=== PATIENT | male | born 1990 | race American Indian/Alaskan Native ===

== ENCOUNTER 2019-05-29 14:42 | Emergency (ER) | payer SELFPAY ==
--- NOTE | 2019-05-29 16:22 | Emergency Department Report ---
Blank Doc - Documentation Documentation: 28-year-old male that presents with a SZ like activity. Denies any LOC. Stated has some hand shaking and aura. Denies any active SZ. This initial assessment/diagnostic orders/clinical plan/treatment(s) is/are subject to change based on patient's health status, clinical progression and re- assessment by fellow clinical providers in the ED. Further treatment and workup at subsequent clinical providers discretion. Patient/guardians urged not to elope from the ED as their condition may be serious if not clinically assessed and managed. Initial orders include: 1- Patient sent to [facility] for further evaluation and treatment 2- labs 3- UA
[2019-05-29 16:56] LABS: Basophils % (Auto) 0.5 % (0.0-1.8); Eosinophils # (Auto) 0.1 K/mm3 (0.0-0.4); Hematocrit 43.1 % (35.5-45.6); Hemoglobin 14.3 gm/dl (11.8-15.2); Lymphocytes # (Auto) 2.5 K/mm3 (1.2-5.4); Mean Corpuscular HGB Conc 33 % (32-34); Mean Corpuscular Volume 89 fl (84-94); Monocytes # (Auto) 0.7 K/mm3 (0.0-0.8); Monocytes % (Auto) 8.6 % (0.0-7.3); Platelet Count 219 K/mm3 (140-440); Red Blood Count 4.84 M/mm3 (3.65-5.03); Red Cell Distribution Width 14.7 % (13.2-15.2)
[2019-05-29 17:14] LABS: Alanine Aminotransferase 21 units/L (7-56); Albumin 4.3 g/dL (3.9-5); BUN/Creatinine Ratio 13; Blood Urea Nitrogen 16 mg/dL (9-20); Calcium 9.6 mg/dL (8.4-10.2); Hemolysis Index 6
--- NOTE | 2019-05-29 17:45 | Cat Scan Report ---
CT HEAD WITHOUT CONTRAST INDICATION / CLINICAL INFORMATION: Seizure. TECHNIQUE: All CT scans at this location are performed using CT dose reduction for ALARA by means of automated e xposure control. COMPARISON: Head CT 07/03/2009 FINDINGS: HEMORRHAGE: No evidence of intracranial hemorrhage or extra-axial fluid collection. EXTRA-AXIAL SPACES: Cortical sulci, sylvian fissures and basilar cisterns have an unremarkable appear ance. Incidental note is made of enlargement of the cisterna of the vellum interpositum where a small arachnoid cyst (18 x 13 x 15 mm) is suspected. This is a stable finding compared to baseline study . VENTRICULAR SYSTEM: The ventricular system is of normal size and configuration. CEREBRAL PARENCHYMA: No areas of abnormal brain parenchymal attenuation are identified. There is no i ndication of recent infarction. MIDLINE SHIFT OR HERNIATION: There is no mass effect. CEREBELLUM / BRAINSTEM: Brainstem and cerebellum have an unremarkable appearance. INTRACRANIAL VESSELS:No abnormalities are identified on this noncontrast head CT. ORBITS: visualized portions of the orbits have an unremarkable appearance. SOFT TISSUES of HEAD: No significant abnormality. CALVARIUM: Evaluation of bone windows reveals no abnormalities. PARANASAL SINUSES / MASTOID AIR CELLS: Inflammatory mucosal disease is present within multiple ethmoi d air cells bilaterally. Mucosal thickening is present in the visualized portions of the right maxill dayana sinus. Mild mucosal thickening is seen in the anterior aspect of both sphenoid sinuses. Frontal s inuses appear clear. ADDITIONAL FINDINGS: None. IMPRESSION: 1. Suspect small arachnoid cyst in the cisterna of the vellum interpositum. This is unchanged since p rior study dated 07/03/2009. 2. Inflammatory changes are present in the paranasal sinuses as noted above. 3. Otherwise normal head CT without contrast. Signer Name: North Barrera MD Signed: 05/29/2019 5:41 PM Workstation Name: [id number]
--- NOTE | 2019-05-29 20:17 | Emergency Department Report ---
ED Seizure HPI - General Chief Complaint: Seizure Stated Complaint: AURA OF SEIZURE Time Seen by Provider: 05/29/19 16:21 Source: patient, EMS Mode of arrival: Ambulatory Limitations: No Limitations - History of Present Illness Initial Comments: Mr. Aguiar is a 28-year-old male with history of schizophrenia and seizure who presents with need to take his medication. He takes Depakote 1000 mg at night. He takes Keppra 500 mg twice a day. He pays rent at the home of his brother. He was recently was kicked out. He states that he does not have anywhere to go at this time. He denies any suicidal ideation. He denies homicidal ideation. Denies hallucinations. He Just does not have anywhere to go. He did not have a seizure. He has his medication Keppra and Depakote in his hand. MD Complaint: feel seizure coming on -: Gradual Trauma: No Seizure History: known seizure disorder Possible Precipitating Event: none Associated Symptoms: denies other symptoms Treatments Prior to Arrival: none - Related Data Allergies Allergy/AdvReac Type Severity Reaction Status Date / Time No Known Allergies Allergy Verified 05/29/19 16:21 ED Review of Systems ROS: Stated complaint: AURA OF SEIZURE Other details as noted in HPI Comment: All other systems reviewed and negative Constitutional: denies: fever, malaise Respiratory: denies: cough Cardiovascular: denies: chest pain Gastrointestinal: denies: abdominal pain, nausea, vomiting Psychiatric: denies: anxiety, depression, auditory hallucinations, visual hallucinations, homicidal thoughts, suicidal thoughts ED Past Medical Hx - Past Medical History Previous Medical History?: Yes Hx Seizures: Yes Hx Psychiatric Treatment: Yes (schgabrielaophernia) - Surgical History Past Surgical History?: Yes Additional Surgical History: eye surgery - Social History Smoking Status: Current Every Day Smoker Substance Use Type: Marijuana ED Physical Exam - General Limitations: No Limitations General appearance: alert, in no apparent distress - Head Head exam: Present: atraumatic, normocephalic - Eye Eye exam: Present: normal appearance - ENT ENT exam: Present: mucous membranes moist - Neck Neck exam: Present: normal inspection, full ROM. Absent: tenderness, meningismus - Respiratory Respiratory exam: Present: normal lung sounds bilaterally. Absent: respiratory distress, wheezes, rales, rhonchi - Cardiovascular Cardiovascular Exam: Present: regular rate, normal rhythm, normal heart sounds. Absent: systolic murmur, diastolic murmur, rubs, gallop - GI/Abdominal GI/Abdominal exam: Present: soft, normal bowel sounds. Absent: distended, tenderness, guarding, rebound - Rectal Rectal exam: Present: deferred - Extremities Exam Extremities exam: Present: normal inspection - Back Exam Back exam: Present: normal inspection - Neurological Exam Neurological exam: Present: alert, oriented X3 - Psychiatric Psychiatric exam: Present: normal affect, normal mood, other (insightful art iculate ) - Skin Skin exam: Present: warm, dry, intact, normal color. Absent: rash ED Course Vital Signs 05/29/19 15:05 Temperature 97.8 F Pulse Rate 99 H Respiratory 16 Rate Blood Pressure 118/81 O2 Sat by Pulse 99 Oximetry ED Medical Decision Making - Lab Data Result diagrams: 05/29/19 16:32 05/29/19 16:32 Laboratory Results - last 24 hr 05/29/19 05/29/19 05/29/19 16:32 16:32 16:32 WBC 8.7 RBC 4.84 Hgb 14.3 Hct 43.1 MCV 89 MCH 30 MCHC 33 RDW 14.7 Plt Count 219 Lymph % (Auto) 29.0 Bonner % (Auto) 8.6 H Eos % (Auto) 1.0 Baso % (Auto) 0.5 Lymph # 2.5 Bonner # 0.7 Eos # 0.1 Baso # 0.0 Seg Neutrophils % 60.9 Seg Neutrophils # 5.3 Sodium 138 Potassium 4.2 Chloride 100.7 Carbon Dioxide 25 Anion Gap 17 BUN 16 Creatinine 1.2 Estimated GFR > 60 BUN/Creatinine Ratio 13 Glucose 85 Calcium 9.6 Total Bilirubin 0.40 AST 35 ALT 21 Alkaline Phosphatase 82 Total Creatine Kinase Total Protein 8.0 Albumin 4.3 Albumin/Globulin Ratio 1.2 Salicylates < 0.3 L Acetaminophen Plasma/Serum Alcohol 05/29/19 05/29/19 05/29/19 16:32 16:32 Unknown WBC RBC Hgb Hct MCV MCH MCHC RDW Plt Count Lymph % (Auto) Bonner % (Auto) Eos % (Auto) Baso % (Auto) Lymph # Bonner # Eos # Baso # Seg Neutrophils % Seg Neutrophils # Sodium Potassium Chloride Carbon Dioxide Anion Gap BUN Creatinine Estimated GFR BUN/Creatinine Ratio Glucose Calcium Total Bilirubin AST ALT Alkaline Phosphatase Total Creatine Kinase 1230 H Total Protein Albumin Albumin/Globulin Ratio Salicylates Acetaminophen < 5.0 L Plasma/Serum Alcohol < 0.01 - Medical Decision Making Mr. Aguiar has history of seizure disorder. He stated that he needed to take his medication. Unfortunately appears that he is currently homeless since he pays rent in his brother's home. He does not have a plan to harm himself or others. No indication of acute psychosis. He is discharged to self care. Critical care attestation.: If time is entered above; I have spent that time in minutes in the direct care of this critically ill patient, excluding procedure time. ED Disposition Clinical Impression: Seizure disorder, Schizophrenia Disposition: DC-01 TO HOME OR SELFCARE Is pt being admited?: No Does the pt Need Aspirin: No Condition: Stable Instructions: Epilepsy (ED) Referrals: SERGO WYNN MD [Primary Care Provider] - 3-5 Days
[2019-05-29 20:53] VITALS: BP 131/74
== END 2019-05-29 20:40 | disposition home or self-care (01) ==
LOC: ED 14:42
DX: G40.909 Epilepsy, unspecified, not intractable, without status epilepticus (principal); F20.9 Schizophrenia, unspecified; F17.200 Nicotine dependence, unspecified, uncomplicated; F12.10 Cannabis abuse, uncomplicated
CPT/HCPCS: 36415; 70450; 80053; 80320; 82550; 85025; 99284; G0480